=== PATIENT | female | born 1930 | race Caucasian/White ===

== ENCOUNTER 2017-12-19 14:16 | Observation (INO) ==
[2017-12-19] MEDS ORDERED: *HR* FentaNYL (PF) 100 MCG/2 ML VIAL IVP ONE ×2 (15:05→20:14)
[2017-12-19] MEDS ORDERED: Ondansetron 4 MG/2 ML VIAL IVP ONE ×2 (15:06→17:19)
--- NOTE | 2017-12-19 15:13 | Emergency Department Note ---
START Narrative - START START: I examined this patient and my medical decision-making was reviewed with the ARMATURE VARNISHER/PA/Advanced Practice Nurse/Resident Physician. I agree with the documented findings, disposition and treatment plan as described except to the extent set forth below. I did see the patient is spoke with her and examined her and she does have abdominal pain which her daughter confirms is severe and she does have some chronic pain but this is worse than usual. The patient has had a Whipple procedure for pancreatic cancer patient does have nausea but no vomiting. No fevers. No blood in the urine or stool. Received medication for pain and nausea and CT of the abdomen and this will be done as a CTA as the patient does have pain out of proportion. Results are pending. Labs are also pending including LFTs and lipase. 1513 I did review the EKG showing normal sinus rhythm with a rate of 73 and without acute ischemic change 1921 Patient will be admitted for hyponatremia and I did discuss this case with Dr. Crain who does recommend admission. She will be consult to. The patient does have elevated blood pressure and did receive 20 mg IV labetalol plus I just wrote for Norvasc 10 mg even though the blood pressure has minimally improved. She does not seem to be symptomatic with elevated blood pressure. Hospitalist has been notified and they have accepted the patient for admission [id number]
[2017-12-19] MEDS ORDERED: 0.9 % Sodium Chloride 1,000 ML ONE (15:14)
[2017-12-19 15:19] LABS: Basophils % 0.4 %; Eosinophils # 0.1 K/mcL (0.0-0.6); Eosinophils % 1.2 %; Hematocrit 33.4 % (35.3-44.9); Hemoglobin 11.2 g/dL (11.5-15.4); Immature Granulocytes % 0.2 % (0-4); Lymphocytes # 1.6 K/mcL (0.6-4.6); Lymphocytes % 31.7 %; Mean Corpuscular HGB Conc 33.5 g/dL (31.6-35.5); Mean Corpuscular Hemoglobin 30.2 pg (28.0-33.3); Mean Platelet Volume 8.2 fL (9.4-12.4); Monocytes # 0.4 K/mcL (0.0-1.3); Monocytes % 7.2 %; Platelet Count 244 K/mcL (140-400); Red Blood Count 3.71 M/mcL (3.82-4.97); Red Cell Distribution Width 12.7 % (11.5-14.5); Segmented Neutrophils % 59.3 %
[2017-12-19 15:42] LABS: Troponin I < 0.03 ng/mL (< 0.04)
[2017-12-19 15:57] LABS: Bilirubin,Urine Negative (Negative); Blood,Urine Negative (Negative); Clarity,Urine Clear (Clear); Color,Urine Yellow (Yellow); Glucose,Urine (UA) Normal (Normal); Ketones,Urine Negative (Negative); Leukocyte Esterase,Urine Negative (Negative); Nitrite,Urine Negative (Negative); PH,Urine 7.5 pH Units (5.0-8.0); Protein,Urine 100 mg/dL (Neg-Trace); Specific Gravity,Urine 1.011 (1.010-1.025); Urobilinogen,Urine Normal (Normal)
[2017-12-19 15:58] LABS: Alanine Aminotransferase 10 Units/L (7-52); Albumin 4.1 g/dL (3.5-5.7); Albumin/Globulin Ratio 1.2 (1.1-2.2); Alkaline Phosphatase 70 Units/L (34-104); Aspartate Amino Transferase 16 Units/L (13-39); BUN/Creatinine Ratio 15 (6-26); Bilirubin,Direct 0.1 mg/dL (0.0-0.2); Bilirubin,Indirect 0.5 mg/dL (0.0-1.2); Bilirubin,Total 0.6 mg/dL (0.3-1.0); Blood Urea Nitrogen 11 mg/dL (8-23); Calcium 9.8 mg/dL (8.6-10.3); Carbon Dioxide 25 mEq/L (23-29); Chloride 92 mEq/L (98-107); Globulin 3.5 g/dL (2.4-3.5); Glucose 107 mg/dL (70-105); Lipase 8 Units/L (11-82); Osmolality,Calculated 262 (280-300); Potassium 4.6 mEq/L (3.5-5.1); Sodium 126 mEq/L (136-145); Total Protein 7.6 g/dL (6.4-8.9); eGFR For African Americans > 60 (> 60); eGFR For Non-African Americans > 60 (> 60)
[2017-12-19 15:59] LABS: Bacteria,Urine None Seen per hpf (None-Few); Hyaline Casts,Urine None Seen per lpf (None-Few); Squamous Epithelial Cell,Urine Moderate per lpf (None-Few); WBC,Urine 0-3 per hpf (0-3)
[2017-12-19] MEDS ORDERED: *HR* Labetalol 20 MG/4 ML SYRINGE IVP ONE (18:18)
--- NOTE | 2017-12-19 18:47 | Emergency Department Note ---
Disposition Clinical Impression: Hyponatremia Hypertension Qualifiers: Hypertension type: unspecified Qualified Code(s): I10 - Essential (primary) hypertension Disposition: Admitted As Inpatient Condition: Fair Referrals: Virginia Cortez CNP [Primary Care Provider] - Abdominal Pain HPI - General Chief Complaint: ED Abdominal Pain Stated Complaint: Nausea,Feels like body on fire Time Seen by Provider: 12/19/17 14:41 Source: patient, family Mode of arrival: ambulatory Limitations: no limitations Vital Signs Reviewed: Yes - History of Present Illness HPI Narrative: Eli Flores is a 87 year old female who presents with one day of "all-over burning pain." She states that she feels like her "whole body is on fire." She rates the pain as 12/10 and states that it was of gradual onset. She has additional complaints of nausea and anorexia. She denies vomiting. She has a history of pancreatic cancer s/p whipple. She took omeprazole, zofran, and her home pain medications, but none helped. Pain Scale: 0 - Related Data Home Medications Medication Instructions Recorded Confirmed Amlodipine [Norvasc] 5 mg PO BID 09/07/15 09/07/15 Aspirin Enteric Coated [Aspirin EC] 81 mg PO HS 09/07/15 09/07/15 Atorvastatin [Lipitor] 40 mg PO HS 09/07/15 09/07/15 Carvedilol [Coreg] 25 mg PO BID 09/07/15 09/07/15 CloNIDine HCl 0.1 mg PO DAILY PRN 09/07/15 09/07/15 Cranberry 405 mg PO DAILY 09/07/15 09/07/15 Folic Acid 0.8 mg PO DAILY 09/07/15 09/07/15 Levothyroxine [Synthroid] 75 mcg PO DAILY 09/07/15 09/07/15 Losartan [Cozaar] 50 mg PO BID 09/07/15 09/07/15 Multivitamin [Flintstones] 1 each PO DAILY 09/07/15 09/07/15 [place]-3S/Dha/Epa/Fish Oil [Fish 1,000 each PO TID 09/07/15 09/07/15 Oil 1,200 mg Softgel] Omeprazole [PriLOSEC] 20 mg PO BID 09/07/15 09/07/15 Pramipexole [Mirapex] 0.25 mg PO HS 09/07/15 09/07/15 Zolpidem [Ambien] 10 mg PO HS 09/07/15 09/07/15 Previous Rx's Medication Instructions Recorded Docusate [Colace] 100 mg PO BID PRN #0 capsule 09/15/15 Heparin 5,000 unit SQ Q12HR vial 09/15/15 Methyl Salicylate/Menthol [Bengay] 1 appl TP BID PRN #0 tube 09/15/15 Ondansetron ODT [Zofran ODT] 4 mg SL Q6HR PRN #30 tab.rapdis 09/15/15 OxyCODONE/APAP 5/325 [Percocet 1 each PO Q4HR PRN #30 tablet 09/15/15 5/325] Allergies Allergy/AdvReac Type Severity Reaction Status Date / Time ciprofloxacin [From Cipro] AdvReac Intermediate Hives Verified 12/19/17 14:23 cephalexin [From Keflex] AdvReac Headache Verified 12/19/17 14:23 lisinopril [From Zestril] AdvReac ANGIOEDEMA Verified 12/19/17 14:23 Sulfa (Sulfonamide AdvReac Rash Verified 12/19/17 14:23 Antibiotics) Constitutional: Denies: fever, chills Respiratory: Denies: dyspnea Gastrointestinal: Reports: abdominal pain, nausea, constipation (chronic, intermittent). Denies: vomiting Neurological: Reports: headache. Denies: numbness, paresthesias Abdominal Pain PMH - Past Medical History Medical history: Reports: GERD, hyperlipidemia, hypertension, myocardial infarction Female Surgical History: Reports: angioplasty/stent, appendectomy, cancer surgery, cholecystectomy, colectomy, other Psychiatric history: Reports: anxiety, depression - Social History Smoking status: Former smoker Alcohol use: Reports: none Drug use: Reports: none Physical Exam - General Limitations: no limitations General appearance: alert, in no apparent distress - Head Head exam: normal inspection - Eye Eye exam: Present: PERRL, EOMI - ENT ENT exam: mucous membranes moist - Respiratory Respiratory exam: Present: normal lung sounds bilaterally. Absent: respiratory distress, accessory muscle use - Cardiovascular Cardiovascular exam: Present: regular rate, normal rhythm, +S1, +S2 - Abdominal Exam Abdominal exam: Present: soft, tenderness, normal bowel sounds. Absent: guarding, rebound, rigidity Abdominal tenderness: Present: diffuse (greatest in LLQ) - Neurological Exam Neurological exam: Present: alert, oriented X3, other (CN III-XII intact). Absent: motor sensory deficit - Psychiatric Psychiatric exam: Present: normal affect, normal mood - Skin Skin exam: Present: warm, dry Course Vital Signs Temperature 97.3 F L 12/19/17 14:24 Pulse Rate 77 12/19/17 14:24 Respiratory Rate 22 12/19/17 14:24 Blood Pressure 223/80 12/19/17 14:24 O2 Sat by Pulse Oximetry 100 12/19/17 14:24 Temperature 97.3 F L 12/19/17 14:24 Pulse Rate 75 12/19/17 17:45 Respiratory Rate 18 12/19/17 16:30 Blood Pressure 198/77 12/19/17 17:45 O2 Sat by Pulse Oximetry 98 12/19/17 17:45 Oxygen Delivery Oxygen Delivery Room Air Abdominal Pain - MDM Narrative Medical decision making narrative: Patient with pancreatic cancer history s/p whipple with significant abdominal and whole body pains. BP elevated into 200s/100s. Pain in abdomen out of proportion to exam. CT angiogram of the abdomen negative for acute findings. Lactate, CBC, lipase, LFTs, and UA were benign. On BMP, she was noted to be hyponatremic at 126. Patient has history of hyponatremia for which she takes sodium chloride pills at home. Patient's pain initially improved with administration of 50 mcg of fentanyl. BP remain elevated around 200/100 throughout ER stay, despite administration of labetalol. Dose of norvasc added before transfer to floor. Case was discussed with her database management specialist, Dr. Sue, who wanted patient to be admitted considering failure of outpatient therapy. She additionally wanted patient to receive a 250 mg bolus of normal saline followed by continuous normal saline at 125 mls/hr. - Lab Data Lab results reviewed: Yes I reviewed the patient's lab results. Result diagrams: 12/19/17 15:12 12/19/17 15:12 Lab Results 12/19/17 12/19/17 12/19/17 Range/Units 15:12 15:12 15:12 WBC 5.0 (4.3-11.1) K/mcL RBC 3.71 L (3.82-4.97) M/mcL Hgb 11.2 L (11.5-15.4) g/dL Hct 33.4 L (35.3-44.9) % MCV 90.0 (83.0-100.0) fL MCH 30.2 (28.0-33.3) pg MCHC 33.5 (31.6-35.5) g/dL RDW 12.7 (11.5-14.5) % Plt Count 244 (140-400) K/mcL MPV 8.2 L (9.4-12.4) fL Immature Gran % 0.2 (0-4) % Seg Neutrophils % 59.3 % Lymphocytes % 31.7 % Monocytes % 7.2 % Eosinophils % 1.2 % Basophils % 0.4 % Neutrophils # 3.0 (1.6-8.9) K/mcL Lymphocytes # 1.6 (0.6-4.6) K/mcL Monocytes # 0.4 (0.0-1.3) K/mcL Eosinophils # 0.1 (0.0-0.6) K/mcL Basophils # 0.0 (0.0-0.2) K/mcL Sodium 126 L (136-145) mEq/L Potassium 4.6 (3.5-5.1) mEq/L Chloride 92 L (98-107) mEq/L Carbon Dioxide 25 (23-29) mEq/L BUN 11 (8-23) mg/dL Creatinine 0.72 (0.60-1.20) mg/dL Est GFR ( Amer) > 60 (> 60) Est GFR (Non-Af Amer) > 60 (> 60) BUN/Creatinine Ratio 15 (6-26) Glucose 107 H (70-105) mg/dL Calculated Osmolality 262 L (280-300) Lactic Acid 1.0 (0.5-2.2) mmol/L Calcium 9.8 (8.6-10.3) mg/dL Total Bilirubin 0.6 (0.3-1.0) mg/dL Direct Bilirubin 0.1 (0.0-0.2) mg/dL Indirect Bilirubin 0.5 (0.0-1.2) mg/dL AST 16 (13-39) Units/L ALT 10 (7-52) Units/L Alkaline Phosphatase 70 (34-104) Units/L Troponin I < 0.03 (< 0.04) ng/mL Serum Total Protein 7.6 (6.4-8.9) g/dL Albumin 4.1 (3.5-5.7) g/dL Globulin 3.5 (2.4-3.5) g/dL Albumin/Globulin Ratio 1.2 (1.1-2.2) Lipase 8 L (11-82) Units/L Urine Color (Yellow) Urine Clarity (Clear) Urine pH (5.0-8.0) pH Units Ur Specific [place] (1.010-1.025) Urine Protein (Neg-Trace) mg/dL Urine Glucose (UA) (Normal) mg/dL Urine Ketones (Negative) mg/dL Urine Blood (Negative) Urine Nitrite (Negative) Urine Bilirubin (Negative) Urine Urobilinogen (Normal) mg/dL Ur Leukocyte Esterase (Negative) Urine Microscopic RBC (0-3) per hpf Urine Microscopic WBC (0-3) per hpf Ur Squamous Epith Cells (None-Few) per lpf Urine Bacteria (None-Few) per hpf Hyaline Casts (None-Few) per lpf Ur Culture Indicated? (NO) 12/19/17 Range/Units 15:50 WBC (4.3-11.1) K/mcL RBC (3.82-4.97) M/mcL Hgb (11.5-15.4) g/dL Hct (35.3-44.9) % MCV (83.0-100.0) fL MCH (28.0-33.3) pg MCHC (31.6-35.5) g/dL RDW (11.5-14.5) % Plt Count (140-400) K/mcL MPV (9.4-12.4) fL Immature Gran % (0-4) % Seg Neutrophils % % Lymphocytes % % Monocytes % % Eosinophils % % Basophils % % Neutrophils # (1.6-8.9) K/mcL Lymphocytes # (0.6-4.6) K/mcL Monocytes # (0.0-1.3) K/mcL Eosinophils # (0.0-0.6) K/mcL Basophils # (0.0-0.2) K/mcL Sodium (136-145) mEq/L Potassium (3.5-5.1) mEq/L Chloride (98-107) mEq/L Carbon Dioxide (23-29) mEq/L BUN (8-23) mg/dL Creatinine (0.60-1.20) mg/dL Est GFR ( Amer) (> 60) Est GFR (Non-Af Amer) (> 60) BUN/Creatinine Ratio (6-26) Glucose (70-105) mg/dL Calculated Osmolality (280-300) Lactic Acid (0.5-2.2) mmol/L Calcium (8.6-10.3) mg/dL Total Bilirubin (0.3-1.0) mg/dL Direct Bilirubin (0.0-0.2) mg/dL Indirect Bilirubin (0.0-1.2) mg/dL AST (13-39) Units/L ALT (7-52) Units/L Alkaline Phosphatase (34-104) Units/L Troponin I (< 0.04) ng/mL Serum Total Protein (6.4-8.9) g/dL Albumin (3.5-5.7) g/dL Globulin (2.4-3.5) g/dL Albumin/Globulin Ratio (1.1-2.2) Lipase (11-82) Units/L Urine Color Yellow (Yellow) Urine Clarity Clear (Clear) Urine pH 7.5 (5.0-8.0) pH Units Ur Specific [place] 1.011 (1.010-1.025) Urine Protein 100 H (Neg-Trace) mg/dL Urine Glucose (UA) Normal (Normal) mg/dL Urine Ketones Negative (Negative) mg/dL Urine Blood Negative (Negative) Urine Nitrite Negative (Negative) Urine Bilirubin Negative (Negative) Urine Urobilinogen Normal (Normal) mg/dL Ur Leukocyte Esterase Negative (Negative) Urine Microscopic RBC 3-5 H (0-3) per hpf Urine Microscopic WBC 0-3 (0-3) per hpf Ur Squamous Epith Cells Moderate H (None-Few) per lpf Urine Bacteria None Seen (None-Few) per hpf Hyaline Casts None Seen (None-Few) per lpf Ur Culture Indicated? NO (NO) - Radiology Data Radiology results reviewed: Yes I reviewed the patient's radiology results. Abdomen/Pelvis CTA 12/19/17 15:03 IMPRESSION: 1. No significant change compared to prior study. 2. Redemonstration of severe atherosclerotic disease of the abdominal aorta, worse in the infrarenal portion without evidence of occlusion or high-grade stenosis. There are focal areas of less than 40% stenosis. Persistent irregular area involving the infrarenal segment with possible focal dissection or ulcerative plaque, unchanged from the prior CT study. 3. 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 4. Atherosclerotic disease involving the origin and proximal SMA with approximately 60% stenosis, also unchanged from the prior study. The remaining portions of the SMA appear widely patent. 5. Atherosclerotic disease involving the NENITA, though patent. 6. No evidence of acute ischemic colitis. 7. Postsurgical change from prior Whipple. Stable appearance of the atrophic pancreatic body and tail with stable ductal dilatation. No evidence of small bowel obstruction. Stable left adrenal mass, likely representing a benign adenoma. 8. Mild nonspecific wall thickening of the anorectal region. D/ / 12/19/2017 17:32:11 Taran Mccarty MD / brandon Interpreting Provider: Taran Mccarty MD
[2017-12-19] MEDS ORDERED: amLODIPine 5 MG TABLET PO ONE (20:57)
[2017-12-19] MEDS ORDERED: 0.9 % Sodium Chloride 1,000 ML IVC SCH (21:15)
[2017-12-19] MEDS ORDERED: 0.9 % Sodium Chloride 250 ML IVC ONE (21:15)
[2017-12-19] MEDS ORDERED: Naloxone 0.4 MG/ML INJ IVP PRN (21:49)
[2017-12-19] MEDS ORDERED: OXYCODONE Oral CONC 10 MG/0.5 ML ORAL.SYG SL PRN (21:49)
[2017-12-19] MEDS ORDERED: Acetaminophen 325 MG TABLET PO PRN (22:01)
[2017-12-19] MEDS: 0.9 % Sodium Chloride 1,000 ML IVC SCH (22:36)
[2017-12-19 22:41] LABS: BUN/Creatinine Ratio 15 (6-26); Blood Urea Nitrogen 9 mg/dL (8-23); Calcium 9.2 mg/dL (8.6-10.3); Carbon Dioxide 22 mEq/L (23-29); Chloride 96 mEq/L (98-107); Glucose 98 mg/dL (70-105); Osmolality,Calculated 263 (280-300); Potassium 3.8 mEq/L (3.5-5.1); Sodium 127 mEq/L (136-145); Troponin I < 0.03 ng/mL (< 0.04); eGFR For African Americans > 60 (> 60); eGFR For Non-African Americans > 60 (> 60)
--- NOTE | 2017-12-19 22:55 | Internal Med History&Physical ---
Date of Encounter: 12/19/17 Time of Encounter: 21:00 Assessment and Plan (1) Abdominal pain Current visit: Yes Status: Acute Etiology is undetermined. 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 No acute founding. - Patient has history of CAD S/P stent, need to rule out ACS. First set of troponin negative, EKG and remarkable. Will place patient on continuous cardiac monitoring and track 3 sets of troponin. - Peptic ulcer disease versus bowel ischemia - Place patient on nothing by mouth, IV fluid, IV PPI. - Consul GI in a.m. - Symptomatic medical treatment for pain and nausea control Qualifiers: Abdominal location: epigastric Qualified Code(s): R10.13 - Epigastric pain (2) DVT prophylaxis Current visit: Yes Status: Acute Heparin subcutaneously (3) Hypertension Current visit: Yes Status: Acute Patient has poorly controlled hypertension. Probably due to acute pain. We will continue pain control and scheduled and when necessary hypertension medications. Qualifiers: Hypertension type: essential hypertension Qualified Code(s): I10 - Essential (primary) hypertension (4) Hyponatremia Current visit: Yes Status: Acute Patient has mild hyponatremia with sodium level 126. Nephrology was counseled by ER. - Continue IV 0.9% normal saline - Closely follow-up sodium level - Goal of correction is not more than 8 mEq in 24 hours Internal Medicine - H&P: HPI Chief complaint: Abdominal pain Admitted From: Home Plans for Post Hospital Care: Home History of present illness: Ms. Flores is a 87 year old female with a history of hypertension, pancreas cancer S/P Whipple surgery, CAD S/P stent, presented to ER for abdominal pain. Patient said she has a pain for about 2 days. The pain is located on epigastric area, 10 out of 10, constant, patient has nausea but no vomiting. Patient denies diarrhea. Patient said that the pain is not related to eating. Patient denies black stool. In emergency room, abdominal CT with contrast has been done, shows iliac A and SMA stenosis but no change with previous study. Patient was admitted for further management. Past Med Surg Social Fam HX - Past Medical History Medical history: GERD, hyperlipidemia, hypertension, myocardial infarction Psychiatric history: anxiety, depression - Social History Smoking Status: Former smoker Smokeless Tobacco Status: No Alcohol use: none Drug use: none - Family History Brother Living Status: Hx Family GI Disorders: Yes (colon ca) Internal Medicine - H&P: Meds Amlodipine [Norvasc] 5 mg PO BID 09/07/15 [History] Aspirin Enteric Coated [Aspirin EC] 81 mg PO HS 09/07/15 [History] Atorvastatin [Lipitor] 40 mg PO HS 09/07/15 [History] Carvedilol [Coreg] 25 mg PO BID 09/07/15 [History] CloNIDine HCl 0.1 mg PO DAILY PRN 09/07/15 [History] Cranberry 405 mg PO DAILY 09/07/15 [History] Folic Acid 0.8 mg PO DAILY 09/07/15 [History] Levothyroxine [Synthroid] 75 mcg PO DAILY 09/07/15 [History] Losartan [Cozaar] 50 mg PO BID 09/07/15 [History] Multivitamin [Flintstones] 1 each PO DAILY 09/07/15 [History] [place]-3S/Dha/Epa/Fish Oil [Fish Oil 1,200 mg Softgel] 1,000 each PO TID [History] Omeprazole [PriLOSEC] 20 mg PO BID 09/07/15 [History] Pramipexole [Mirapex] 0.25 mg PO HS 09/07/15 [History] Zolpidem [Ambien] 10 mg PO HS 09/07/15 [History] Docusate [Colace] 100 mg PO BID PRN #0 capsule 09/15/15 [Rx] Heparin 5,000 unit SQ Q12HR vial 09/15/15 [Rx] Methyl Salicylate/Menthol [Bengay] 1 appl TP BID PRN #0 tube 09/15/15 [Rx] Ondansetron ODT [Zofran ODT] 4 mg SL Q6HR PRN #30 tab.rapdis 09/15/15 [Rx] OxyCODONE/APAP 5/325 [Percocet 5/325] 1 each PO Q4HR PRN #30 tablet 09/15/15 [Rx ] 3 Allergy/AdvReac Type Severity Reaction Status Date / Time ciprofloxacin [From Cipro] AdvReac Intermediate Hives Verified 12/19/17 14:23 cephalexin [From Keflex] AdvReac Headache Verified 12/19/17 14:23 lisinopril [From Zestril] AdvReac ANGIOEDEMA Verified 12/19/17 14:23 Sulfa (Sulfonamide AdvReac Rash Verified 12/19/17 14:23 Antibiotics) All Systems PM: A 10-system review of systems was performed and is negative for pertinent findings except as documented above in the HPI. - Constitutional Vitals: Temp Pulse Resp BP Pulse Ox 97.3 F L 79 22 191/85 99 12/19/17 14:24 12/19/17 22:33 12/19/17 22:33 12/19/17 22:33 12/19/17 22:33 General appearance: Present: A&O X 3, severe distress, answers questions appropriately - Head Head exam: Present: atraumatic, normocephalic - Eye Eye exam: Present: PERRL, conjuntiva pink, sclera anicteric Pupils: Present: PERRL - Neck Neck exam general surgery: Present: supple, trachea midline. Absent: lymphadenopathy - Respiratory Respiratory exam: Present: CTAB. Absent: accessory muscle use, rales, rhonchi, wheezes - Cardiovascular Cardiovascular exam: Present: RRR, +S1, +S2. Absent: diastolic murmur, gallop, rubs, systolic murmur - GI/Abdominal GI/Abdominal exam: Present: normal bowel sounds, soft, tenderness (Mild tenderness on epigastric area, no rebound or guarding), no peritoneal signs. Absent: distended - Extremities Exam Extremities exam: Present: warm, radial pulses palpable and symmetrical. Absent : calf tenderness, cyanotic, pedal edema - Neurological Exam Neurological exam: Present: CN II-XII intact, oriented X3, no focal deficits. Absent: pronater drift, facial droop, speech deficit - Skin Skin exam: Present: dry, intact Internal Med - H&P Results - Labs CBC & Chem 7: 12/19/17 15:12 12/19/17 22:09 - EKG Data -: EKG Interpreted by Myself EKG shows normal: sinus rhythm Rate: normal
[2017-12-19] MEDS: OXYCODONE Oral CONC 10 MG/0.5 ML ORAL.SYG SL PRN (23:53)
[2017-12-19] MEDS: Pantoprazole 40 MG VIAL IVP SCH (23:54)
[2017-12-20] MEDS: 0.9 % Sodium Chloride 1,000 ML IVC SCH ×2 (00:39→13:25)
[2017-12-20 02:44] LABS: Basophils % 0.3 %; Eosinophils # 0.1 K/mcL (0.0-0.6); Eosinophils % 1.1 %; Hematocrit 31.6 % (35.3-44.9); Hemoglobin 10.7 g/dL (11.5-15.4); Immature Granulocytes % 0.3 % (0-4); Lymphocytes # 1.4 K/mcL (0.6-4.6); Lymphocytes % 22.2 %; Mean Corpuscular HGB Conc 33.9 g/dL (31.6-35.5); Mean Corpuscular Hemoglobin 30.7 pg (28.0-33.3); Mean Corpuscular Volume 90.8 fL (83.0-100.0); Mean Platelet Volume 8.5 fL (9.4-12.4); Monocytes # 0.5 K/mcL (0.0-1.3); Monocytes % 7.9 %; Neutrophils # 4.4 K/mcL (1.6-8.9); Platelet Count 283 K/mcL (140-400); Red Blood Count 3.48 M/mcL (3.82-4.97); Segmented Neutrophils % 68.2 %
[2017-12-20 02:54] LABS: BUN/Creatinine Ratio 16 (6-26); Blood Urea Nitrogen 9 mg/dL (8-23); Calcium 8.8 mg/dL (8.6-10.3); Carbon Dioxide 22 mEq/L (23-29); Chloride 100 mEq/L (98-107); Glucose 103 mg/dL (70-105); Osmolality,Calculated 267 (280-300); Potassium 3.8 mEq/L (3.5-5.1); Sodium 129 mEq/L (136-145); eGFR For African Americans > 60 (> 60); eGFR For Non-African Americans > 60 (> 60)
[2017-12-20 02:56] LABS: BUN/Creatinine Ratio 16 (6-26); Blood Urea Nitrogen 9 mg/dL (8-23); Calcium 8.8 mg/dL (8.6-10.3); Carbon Dioxide 22 mEq/L (23-29); Chloride 99 mEq/L (98-107); Glucose 104 mg/dL (70-105); Magnesium 1.6 mg/dL (1.6-2.6); Osmolality,Calculated 267 (280-300); Potassium 3.7 mEq/L (3.5-5.1); Sodium 129 mEq/L (136-145); eGFR For African Americans > 60 (> 60); eGFR For Non-African Americans > 60 (> 60)
[2017-12-20 02:57] LABS: Troponin I < 0.03 ng/mL (< 0.04)
[2017-12-20] MEDS ORDERED: Melatonin 3 MG TABLET PO STA (04:22)
[2017-12-20 06:34] LABS: BUN/Creatinine Ratio 17 (6-26); Blood Urea Nitrogen 9 mg/dL (8-23); Calcium 8.4 mg/dL (8.6-10.3); Carbon Dioxide 23 mEq/L (23-29); Chloride 100 mEq/L (98-107); Glucose 98 mg/dL (70-105); Osmolality,Calculated 273 (280-300); Potassium 3.7 mEq/L (3.5-5.1); Sodium 132 mEq/L (136-145); eGFR For African Americans > 60 (> 60); eGFR For Non-African Americans > 60 (> 60)
[2017-12-20] MEDS: Pantoprazole 40 MG VIAL IVP SCH ×2 (06:41→18:22)
[2017-12-20] MEDS: *HR* Heparin 5,000 UNIT/ML VIAL SQ SCH ×2 (06:41→18:23)
[2017-12-20] MEDS ORDERED: *HR* Propofol 200 MG/20 ML VIAL IVP ONE (07:24)
[2017-12-20] MEDS ORDERED: Lidocaine -MPF 2% 2 ML VIAL ONE (07:24)
[2017-12-20] MEDS ORDERED: Simethicone 40 MG/0.6 ML MLS IR ONE (07:57)
[2017-12-20] MEDS ORDERED: Tetracaine/Benzocaine/Butamben 200MG/SPRAY (100SPY/BOT) MM ONE (07:57)
--- NOTE | 2017-12-20 07:57 | Anesthesia Evaluation PreOp ---
Date of Encounter: 12/20/17 Time of Encounter: 08:00 - Past History Planned Operation: EGD Cardiac History: MS, HTN, Hyperlipidemia, Cardiac Stent Pulmonary History: Former smoker SENIOR ELECTRONICS TECHNICIAN History: Denies Any Significant HX Other Medical History: Thyroid, GERD Anesthesia History: No Prior Anesthetic Complications : No Alcohol Use: none Drug use: none Medications and Allergies Amlodipine [Norvasc] 5 mg PO BID 09/07/15 [History] Aspirin Enteric Coated [Aspirin EC] 81 mg PO HS 09/07/15 [History] Atorvastatin [Lipitor] 40 mg PO HS 09/07/15 [History] Carvedilol [Coreg] 25 mg PO BID 09/07/15 [History] CloNIDine HCl 0.1 mg PO DAILY PRN 09/07/15 [History] Cranberry 405 mg PO DAILY 09/07/15 [History] Folic Acid 0.8 mg PO DAILY 09/07/15 [History] Levothyroxine [Synthroid] 75 mcg PO DAILY 09/07/15 [History] Losartan [Cozaar] 50 mg PO BID 09/07/15 [History] Multivitamin [Flintstones] 1 each PO DAILY 09/07/15 [History] [place]-3S/Dha/Epa/Fish Oil [Fish Oil 1,200 mg Softgel] 1,000 each PO TID [History] Omeprazole [PriLOSEC] 20 mg PO BID 09/07/15 [History] Pramipexole [Mirapex] 0.25 mg PO HS 09/07/15 [History] Zolpidem [Ambien] 10 mg PO HS 09/07/15 [History] Docusate [Colace] 100 mg PO BID PRN #0 capsule 09/15/15 [Rx] Heparin 5,000 unit SQ Q12HR vial 09/15/15 [Rx] Methyl Salicylate/Menthol [Bengay] 1 appl TP BID PRN #0 tube 09/15/15 [Rx] Ondansetron ODT [Zofran ODT] 4 mg SL Q6HR PRN #30 tab.rapdis 09/15/15 [Rx] OxyCODONE/APAP 5/325 [Percocet 5/325] 1 each PO Q4HR PRN #30 tablet 09/15/15 [Rx ] 3 Allergy/AdvReac Type Severity Reaction Status Date / Time ciprofloxacin [From Cipro] AdvReac Intermediate Hives Verified 12/19/17 14:23 cephalexin [From Keflex] AdvReac Headache Verified 12/19/17 14:23 lisinopril [From Zestril] AdvReac ANGIOEDEMA Verified 12/19/17 14:23 Sulfa (Sulfonamide AdvReac Rash Verified 12/19/17 14:23 Antibiotics) - Meds/Allergy Pre-op Review Medications Reviewed: Yes Allergies Reviewed: Yes Beta Blockers on Current Med List: Yes (to be given this am) Anesthesia Results - Labs 12/20/17 02:25 12/20/17 05:45 - Imaging Additional studies: Stress test negative for ischemia EF 60% Anesthesia Exam Vital Signs/O2 Sat/Glucose, Most Current Temp Pulse Resp BP Pulse Ox 12/20/17 07:00 97.9 F 89 15 146/56 96 12/20/17 05:41 97.9 F 70 20 164/56 97 Height: 5'7 Weight: 123 lbs NPO (# of Hours): MN Pain Scale: 0 - HEENT Pupil (Motor): Pupils equal, EOMI Mallampati: II Teeth: Normal Oral Opening: Greater than 3 - SENIOR ELECTRONICS TECHNICIAN LOC: Oriented SENIOR ELECTRONICS TECHNICIAN Motor: Normal RUE, Normal LUE, Normal RLE, Normal LLE, Normal Face SENIOR ELECTRONICS TECHNICIAN Sensory: Normal: RUE, LUE, RLE, LLE, Face - Cardiac Rhythm: Regular Murmur: None JVD: No Carotid Bruit: No - Pulmonary Breath Sounds: bilateral Clear Respiratory Effort: Symmetrical Anesthesia Assess/Plan ASA Score: 3 (CAD HTN) Modified [place] Scale for Level of Consciousness: Cooperative, oriented, and tranquil Anesthetic Plan: MAC Monitoring Plan: Standard Monitors Recovery Plan: Other (Discussed MAC, agrees to proceed)
[2017-12-20] MEDS: OXYCODONE Oral CONC 10 MG/0.5 ML ORAL.SYG SL PRN ×2 (09:10→14:55)
[2017-12-20] MEDS: Ondansetron 4 MG/2 ML VIAL IVP PRN ×2 (09:32→14:55)
[2017-12-20 09:49] LABS: Prothrombin Time 11.1 Seconds (9.4-12.1)
[2017-12-20 10:00] LABS: BUN/Creatinine Ratio 15 (6-26); Blood Urea Nitrogen 8 mg/dL (8-23); Calcium 8.8 mg/dL (8.6-10.3); Carbon Dioxide 22 mEq/L (23-29); Chloride 100 mEq/L (98-107); Glucose 122 mg/dL (70-105); Osmolality,Calculated 274 (280-300); Potassium 4.1 mEq/L (3.5-5.1); Sodium 132 mEq/L (136-145); eGFR For African Americans > 60 (> 60); eGFR For Non-African Americans > 60 (> 60)
[2017-12-20 10:01] LABS: Albumin 3.7 g/dL (3.5-5.7); Albumin/Globulin Ratio 1.2 (1.1-2.2); Bilirubin,Direct 0.1 mg/dL (0.0-0.2); Bilirubin,Indirect 0.5 mg/dL (0.0-1.2); Bilirubin,Total 0.6 mg/dL (0.3-1.0); Total Protein 6.7 g/dL (6.4-8.9)
--- NOTE | 2017-12-20 10:29 | Gastroenterology Consult Note ---
<Lulu Walker - Last Filed: 12/20/17 10:27> Date of Encounter: 12/20/17 Time of Encounter: 10:00 - Assessment and plan (1) Abdominal pain Current Visit: Yes Status: Acute Assessment and plan: Pt presents with abdominal pain. She has complicated history including pancreatic CA s/p whipple procedure in 2007. She also had a sigmoid resection in [address] Aiken. She is status post EGD this morning no ulcers found. Would recommend vascular surgery consult for history of mesenteric stenosis and chronic atherosclerosis seen on CTA abdomen. Qualifiers: Abdominal location: epigastric Qualified Code(s): R10.13 - Epigastric pain - Time Spent With Patient Total time spent is greater than 50% in coordination of care (as documented) at patient's floor/unit and/or counseling patient: GI History of Present Illness - Data of Consult Patient: new to practice Consult date: 12/20/17 Requesting Physician: Rod Lucas - Consult Narrative Reason for consult: abdominal pain History of present illness: Ms. Flores is a 87 year old female with a history of hypertension, pancreas cancer S/P Whipple surgery (2007), CAD S/P stent, sigmoid resection for colovesical fistula. She presented to the with a 2 day history of abdominal pain. Pain is epigastric and sometimes radiates down were abdomen but denies any pain in the chest. Pain is not related to eating. She has nausea but denies vomiting. She denies diarrhea, constipation, bloody or black stool. In emergency room, abdominal CT with contrast has been done, shows iliac A and SMA stenosis but no change with previous study. Patient was admitted for further management. Hgb 10.7, WBC 6.4, LFTs normal. Colonoscopy: per pt several years ago per Dr Aiken EGD: 12/20/17 atrophic mucosa in stomach, anastamosis from whipple procedure without ulcer NSAIDS/ASA: asa 8 1mg Anticoagulants: heparin 0641 Past Med Surg Social Fam HX - Past Medical History Medical history: GERD, hyperlipidemia, hypertension, myocardial infarction Psychiatric history: anxiety, depression - Social History Smoking Status: Former smoker Smokeless Tobacco Status: No Alcohol use: none Drug use: none - Family History Brother Living Status: Still Living Hx Family GI Disorders: Yes (colon ca) Hx Family Genitourinary Disorders: Yes (hematuris) Review of Systems: GI: as per [facility]: denies fever or chills EYES: denies yellow discoloration ENT: denies pain with swallowing or difficulty swallowing CARDIO: denies chest pain, palpitations RESP: Shortness of breath with exertion : denies change in color of urine NEURO: weakness HEME: Denies any bruising MS: chronic joint and back pain. DERM: denies rash or itching PSYCH: history of anxiety and depression - Constitutional Vitals: Temp Pulse Resp BP Pulse Ox 98.3 F 76 22 164/68 100 12/20/17 07:45 12/20/17 09:30 12/20/17 09:30 12/20/17 09:30 12/20/17 09:30 Exam: CONSTITUTIONAL:~alert, holding stomach and c/o pain.~HEAD:~normocephalic.~EYES:~ no jaundice.~NECK:~no obvious swelling.~HEART:~regular rate and rhythm, murmur noted.~LUNGS:~bilateral fair air entry.~ABDOMEN:~non distended, soft, very tender epigastric area, no masses pulpable, no organomegaly.~RECTAL EXAM:~ Deferred.~EXTREMITIES:~no clubbing, cyanosis or edema.~SKIN:~no stigmata of chronic liver disease, pallor noted.~NEUROLOGIC:~no obvious focal defect.~~~~ Results - Labs CBC & Chem 7: 12/20/17 02:25 12/20/17 09:29 Labs: Last Result Calcium 8.8 mg/dL (8.6-10.3) 12/20/17 09:29 Troponin I < 0.03 ng/mL (< 0.04) 12/20/17 02:25 Entire Visit Hgb 10.7 g/dL (11.5-15.4) L 12/20/17 02:25 Hct 31.6 % (35.3-44.9) L 12/20/17 02:25 PT 11.1 Seconds (9.4-12.1) 12/20/17 09:29 Total Bilirubin 0.6 mg/dL (0.3-1.0) 12/20/17 09: AST 16 Units/L (13-39) 12/20/17 09:29 ALT 9 Units/L (7-52) 12/20/17 09:29 Lipase 8 Units/L (11-82) L 12/19/17 15:12 - ABG ABG results: PT/INR, D-dimer PT 11.1 Seconds (9.4-12.1) 12/20/17 09:29 Consult Discharge Plan - Plan Referrals: Virginia Cortez, [facility] [Primary Care Provider] - <Syeda Hogan - Last Filed: 12/20/17 13:14> Date of Encounter: 12/20/17 Time of Encounter: 08:00 - Time Spent With Patient Total time spent is greater than 50% in coordination of care (as documented) at patient's floor/unit and/or counseling patient: GI History of Present Illness - Data of Consult Requesting Physician: Rod Lucas - Consult Narrative History of present illness: Ms. Flores is a 87 year old female - Constitutional Vitals: Temp Pulse Resp BP Pulse Ox 97.7 F 74 15 161/62 99 12/20/17 11:04 12/20/17 11:04 12/20/17 11:04 12/20/17 11:04 12/20/17 11:04 Results - Labs CBC & Chem 7: 12/20/17 02:25 12/20/17 09:29 Labs: Last Result Calcium 8.8 mg/dL (8.6-10.3) 12/20/17 09:29 Troponin I < 0.03 ng/mL (< 0.04) 12/20/17 02:25 Entire Visit Hgb 10.7 g/dL (11.5-15.4) L 12/20/17 02:25 Hct 31.6 % (35.3-44.9) L 12/20/17 02:25 PT 11.1 Seconds (9.4-12.1) 12/20/17 09:29 Total Bilirubin 0.6 mg/dL (0.3-1.0) 12/20/17 09:29 AST 16 Units/L (13-39) 12/20/17 09:29 ALT 9 Units/L (7-52) 12/20/17 09:29 Lipase 8 Units/L (11-82) L 12/19/17 15:12 - ABG ABG results: PT/INR, D-dimer PT 11.1 Seconds (9.4-12.1) 12/20/17 09:29 - Attending Attestation I have personally performed a face to face evaluation on this patient. I have reviewed and agree with the care plan. History and Exam by me shows:
[2017-12-20] MEDS ORDERED: *HR* FentaNYL (PF) 100 MCG/2 ML VIAL IVP STA (10:38)
[2017-12-20] MEDS ORDERED: Milk and Molasses Enema 200 ML RC ONE (12:24)
[2017-12-20] MEDS ORDERED: Sennosides/Docusate Sodium TABLET PO SCH (12:30)
[2017-12-20] MEDS: *HR* FentaNYL (PF) 100 MCG/2 ML VIAL IVP PRN ×2 (13:21→18:22)
[2017-12-20 15:11] VITALS: BP 186/68
[2017-12-20 15:44] LABS: BUN/Creatinine Ratio 16 (6-26); Blood Urea Nitrogen 9 mg/dL (8-23); Calcium 8.8 mg/dL (8.6-10.3); Carbon Dioxide 20 mEq/L (23-29); Chloride 101 mEq/L (98-107); Glucose 116 mg/dL (70-105); Osmolality,Calculated 274 (280-300); Sodium 132 mEq/L (136-145); eGFR For African Americans > 60 (> 60); eGFR For Non-African Americans > 60 (> 60)
--- NOTE | 2017-12-20 19:18 | Discharge Summary ---
- NOTES TO OUTPATIENT PROVIDER Notes to Outpatient Provider: Patient will be transferred to [facility] for higher level of care. Follow up plans will be determined at time of discharge from OSH. Orders not resulted at time of discharge: Pending orders 12/20/17 08:43 Surgical Pathology [PTH] Routine 12/21/17 04:00 Basic Metabolic Panel AM 0400 CBC [Complete Blood Count] [HEME] AM 0400 Date of Encounter: 12/20/17 Time of Encounter: 19:15 - Discharge Diagnosis (1) Abdominal pain Priority: Primary Status: Acute Qualifiers: Abdominal location: epigastric Qualified Code(s): R10.13 - Epigastric pain (2) Hypertension Priority: Secondary Status: Chronic Qualifiers: Hypertension type: essential hypertension Qualified Code(s): I10 - Essential (primary) hypertension (3) Hyponatremia Priority: Secondary Status: Acute (4) DVT prophylaxis Priority: Secondary Status: Acute Hospital course: Ms. Flores is a 87 year old female admitted for epigastric pain of 2 days duration. She was admitted for observation to general medical floor. Abdominal CT showed chronic stable iliac and SMA stenoses, but no acute findings. Cardiac enzymes trended negative. She was made NPO, started on IV fluids, and started on IV PPI. She was given home oxycodone for pain, but required IV fentanyl for breakthrough. She was given IV zofran for nausea. She had mild hyponatremia that improved overnight with IV hydration. She had mildly elevated BP, likely due to pain, and was resumed on home medications. BP improved to systolic 160s at time of transfer. Pain was unchanged overnight. GI was consulted and did EGD, which showed no acute findings. GI stated that their only recommendation was vascular surgery consult. Vascular surgery service was not available at this facility today, and would not be present until 12/23/17. Given that pain is still uncontrolled, it was determined that patient's best course of action would be to go home with pain and nausea control and see vascular surgeon outpatient, or be transferred to a facility that has vascular surgery available today. She would like to go to OS , preferably [facility] in [place]. I spoke with hospitalist Dr. Alvarado at [facility], who agrees to accept the patient for higher level of care. Patient is still in pain and has not eaten. She has not had BM. She is hemodynamically stable at time of transfer. Patient has met maximum benefit of this hospitalization and will be transferred to [facility] in stable condition. Discharge discussed with: patient, nurse, case management, other (Pharmacist) - Time Spent with Patient Total time spent providing and/or coordinating discharge services: Greater than 30 minutes Specific discharge activities: Coordinated care with accepting hospitalist, Dr. Alvarado, at [facility]. - Discharge Medications Home Medications: Amlodipine [Norvasc] 5 mg PO DAILY 09/07/15 [History] Aspirin Enteric Coated [Aspirin EC] 81 mg PO HS 09/07/15 [History] Atorvastatin [Lipitor] 40 mg PO HS 09/07/15 [History] Cranberry 405 mg PO DAILY 09/07/15 [History] Levothyroxine [Synthroid] 75 mcg PO DAILY 09/07/15 [History] Losartan [Cozaar] 50 mg PO DAILY 09/07/15 [History] Multivitamin [Flintstones] 1 each PO DAILY 09/07/15 [History] [place]-3S/Dha/Epa/Fish Oil [Fish Oil 1,200 mg Softgel] 1,000 each PO TID [History] Pramipexole [Mirapex] 0.25 mg PO HS 09/07/15 [History] Zolpidem [Ambien] 10 mg PO HS 09/07/15 [History] Methyl Salicylate/Menthol [Bengay] 1 appl TP BID PRN #0 tube 09/15/15 [Rx] Carvedilol [Carvedilol] 12.5 mg PO BID 12/20/17 [History] Carvedilol [Coreg] 25 mg PO BIDWM tablet 12/20/17 [Rx] Escitalopram [Lexapro] 10 mg PO DAILY 12/20/17 [History] HYDROcodone/Acet 10/325 mg [[place] 10-325 mg] 1 tab PO HS PRN 12/20/17 [History] Ondansetron [Zofran] 8 mg PO BID PRN 12/20/17 [History] Pantoprazole Sodium [Protonix] 40 mg PO DAILY 12/20/17 [History] Promethazine [Phenergan] 25 mg PO DAILY 12/20/17 [History] Ranitidine HCl [Acid Superintendent Nonselling] 150 mg PO HS 12/20/17 [History] Sennosides/Docusate Sodium [Senna Plus] 2 each PO BID tablet 12/20/17 [Rx] Allergies/Adverse Reactions: 3 Allergy/AdvReac Type Severity Reaction Status Date / Time ciprofloxacin [From Cipro] AdvReac Intermediate Hives Verified 12/19/17 14:23 cephalexin [From Keflex] AdvReac Headache Verified 12/19/17 14:23 lisinopril [From Zestril] AdvReac ANGIOEDEMA Verified 12/19/17 14:23 Sulfa (Sulfonamide AdvReac Rash Verified 12/19/17 14:23 Antibiotics) Date of admission: 12/20/17 00:17 Primary care physician: Virginia Cortez CNP Consults: Scanning Manager Dr. Hogan. Discharging clinician: Rod Lucas Anticipated date of discharge: 12/20/17 - Constitutional Vitals: Temp Pulse Resp BP Pulse Ox 98.0 F 73 14 186/68 100 12/20/17 15:00 12/20/17 15:00 12/20/17 15:00 12/20/17 15:00 12/20/17 15:00 General appearance: Present: cooperative, A&O X 3, answers questions appropriately Exam: Moderate distress due to pain - Respiratory Respiratory exam: Present: CTAB. Absent: accessory muscle use, rales, rhonchi, wheezes Additional comments: Normal WOB - Cardiovascular Cardiovascular exam: Present: RRR, +S1, +S2. Absent: diastolic murmur, gallop, rubs, systolic murmur Additional comments: No BLE edema - GI/Abdominal GI/Abdominal exam: Present: normal bowel sounds, soft. Absent: distended, hepatomegaly, mass, splenomegaly Additional comments: Diffuse TTP across entire epigastrium, no rebound or guarding - Psychiatric Psychiatric exam: Absent: anxious, depressed, normal affect, normal mood - Skin Skin exam: Present: dry, intact, warm. Absent: cyanosis, rash - Patient Status Disposition: Transfer Other Condition: Fair Overall status at discharge: patient is not back to baseline - Discharge Instructions Follow Up With: Virginia Cortez CNP [Primary Care Provider] - 12/25/17 11:30 am Additional Instructions: Patient will be transferred to [facility] for higher level of care. Follow up plans will be determined at time of discharge from OSH. - Diet and Activity Diet: other (Cardiac)
--- NOTE | 2017-12-24 21:15 | Electrocardiograph Report ---
[place] [id number] Test Date: 2017-12-19 Pat Name: Eli Flores Department: 102 Room: 2NE19 Gender: F Emergency Management Program Specialist: Bob : [id number] Requested By: Keshav Matta Order Number: [id number] Reading MD: Bhupinder Larios DO Measurements Intervals [place] Rate: 73 P: AL: 0 QRS: -12 QRSD: 89 T: 58 QT: 409 QTc: 434 Interpretive Statements SUPRAVENTRICULAR RHYTHM LEFT VENTRICULAR HYPERTROPHY AND ST-T CHANGE Electronically Signed On 12-24-2017 21:13:39 EDT by Bhupinder Larios DO
== END 2017-12-20 19:41 | disposition short-term general hospital (02) | DRG 392 ==
LOC: EMEROO 14:16 → 2NENU 14:16
PROVIDERS: ADMIT Family Medicine; ATTEND Family Medicine
PROC: ENDOEBX (2017-12-20 09:00)